=== PATIENT | female | born 1980 | race Caucasian/White ===

== ENCOUNTER 2017-10-19 14:36 | Observation (INO) ==
[2017-10-19] MEDS ORDERED: Ketorolac Inj 30 MG/ML (IVP) Vial IV.PUSH ONE (14:56)
--- NOTE | 2017-10-19 15:04 | ED ---
HPI General Chief Complaint: Anxiety Stated Complaint: Shaking/SOB Source: patient Mode of arrival: ambulatory Limitations: no limitations History of Present Illness HPI narrative: 37-year-old female complains of feeling anxious, chills, menstruation cramps. Patient states that her menstruation period started this morning. Patient has history anxiety in the past. Patient is on citalopram daily. Patient denies any headache. Patient denies any neck pain. Patient denies any chest pain or shortness of breath. Patient denies abdominal pain. Patient denies any dysuria . Patient denies any fever. Patient denies any back pain. Patient denies any alcohol or illicit drug abuse. Patient states that she had urinary frequency for the past 2 days. Patient has history of tachycardia recently. Patient try to avoid caffeine and resume back to drinking caffeine again today. complaint: anxiety Onset (ago): hour(s) Severity: moderate Quality: constant Place: home History of similar episodes: Yes Provoking factors: none known Relieving factors: nothing Exacerbating factors: nothing Related Data Home Medications Medication Instructions Recorded Confirmed citalopram 20 mg PO DAILY 10/19/17 10/19/17 Allergies Allergy/AdvReac Type Severity Reaction Status Date / Time No Known Allergies Allergy Unverified 10/19/17 14:44 Review of Systems ROS: all other systems reviewed are negative PMFSH Medical History Medical History History of anxiety (Acute) Surgical History Surgical History No history of previous surgery (Acute) Social History Social History Substance History: No History of Abuse Second Hand Smoke Exposure: No Smoking Status: Former smoker Tobacco Type: Cigarettes How Often Do You Have a Drink Containing Alcohol: 4 or more times a week Recent Travel in [facility] within the Last 8 Weeks: No Recent Out of Country Travel within the Last 8 Weeks: No Immunization History Tetanus Immunization: >5 Years Hx Influenza Vaccine This Season: No Exam Narrative Exam Narrative: GENERAL: Well-nourished, well-developed patient. SKIN: Focused skin assessment warm/dry. HEAD: Normocephalic. EYES: No scleral icterus. No injection or drainage. NECK: Supple, trachea midline. No JVD or lymphadenopathy. CARDIOVASCULAR: Mild tachycardia rate and rhythm without murmurs, gallops, or rubs. RESPIRATORY: Breath sounds equal bilaterally. No accessory muscle use. GASTROINTESTINAL: Abdomen soft, non-tender, nondistended. MUSCULOSKELETAL: No cyanosis, or edema. BACK: Nontender without obvious deformity. No CVA tenderness. Neurologic exam normal. Course Initial Documented Vital Signs Temperature 98.2 F 10/19/17 14:45 Pulse Rate 123 H 10/19/17 14:45 Respiratory Rate 24 10/19/17 14:45 Blood Pressure 158/112 H 10/19/17 14:45 Pulse Oximetry 100 10/19/17 14:45 Last Documented Vital Signs Temperature 98.2 F 10/19/17 14:45 Pulse Rate 133 H 10/19/17 16:51 Respiratory Rate 20 10/19/17 16:51 Blood Pressure 122/78 10/19/17 16:51 Pulse Oximetry 98 10/19/17 16:51 Medical Decision Making MDM Narrative Medical decision making narrative: 37-year-old female complains chills, anxiety. History anxiety. Normal saline solution 1 25 cc an hour. Ativan 1 mg IV. Patient remains tachycardic with heart rate in the 140s range. Carotid massage did not slow down the heart rate. Metoprolol 2.5 mg IV slow down heart rate in the 110s range. Patient has UTI. Patient complains of urinary frequency and chills today. Patient does not have any evidence of septicemia. Rocephin 1 g IV given. Patient will be admitted for IV antibiotics and monitor. Avoid caffeine products. Normal saline solution 1 L IV bolus. Medical Screen Exam Complete: Yes Emergency Medical Condition: Yes Differential Diagnosis Differential Diagnosis: Differential diagnosis including anxiety panic attack, electrolyte imbalance, dehydration, electrolyte imbalance, viral syndrome. Lab Data Lab results reviewed: Yes I reviewed the patient's lab results. Result diagrams: 10/19/17 15:10 10/19/17 15:10 POC Results POC Urine Results Negative Lab Results 10/19/17 10/19/17 10/19/17 Range/Units 15:10 15:10 15:10 CBC w Diff Auto diff final WBC 11.3 H (4.0-11.0) th/mm3 RBC 4.26 (4.00-5.30) mil/mm3 Hgb 13.1 (11.6-15.3) gm/dL Hct 38.5 (35.0-46.0) % MCV 90.4 (80.0-100.0) fL MCH 30.9 (27.0-34.0) pg MCHC 34.2 (32.0-36.0) % RDW 13.4 (11.6-17.2) % Plt Count 142 L (150-450) th/mm3 MPV 9.9 (7.0-11.0) fL Neut % (Auto) 84.1 H (16.0-70.0) % Lymph % (Auto) 10.4 (9.0-44.0) % [place] % (Auto) 2.9 (0.0-8.0) % Eos % (Auto) 1.4 (0.0-4.0) % Baso % (Auto) 1.2 (0.0-2.0) % Neut # (Auto) 9.4 H (1.8-7.7) th/mm3 Lymph # (Auto) 1.2 (1.0-4.8) th/mm3 [place] # (Auto) 0.3 (0.0-0.9) th/mm3 Eos # (Auto) 0.2 (0.0-0.4) th/mm3 Baso # (Auto) 0.1 (0.0-0.2) th/mm3 WBC Differential . Differential Comment . PT (9.8-11.6) sec INR Ratio APTT (24.3-30.1) sec D-Dimer Quant (PE/DVT) (0.00-0.50) mg/L FEU Sodium 134 L (136-145) meq/L Potassium 3.9 (3.5-5.1) meq/L Chloride 99 (98-107) meq/L Carbon Dioxide 27.5 (21.0-32.0) meq/L Anion Gap 8 (5-15) meq/L BUN 14 (7-18) mg/dL Creatinine 0.84 (0.50-1.00) mg/dL Estimated GFR 76 L (>89) mL/min Random Glucose 118 H (74-106) mg/dL Calcium 8.5 (8.5-10.1) mg/dL Total Creatine Kinase 57 (26-192) U/L Troponin I Less than 0.02 L (0.02-0.05) ng/mL TSH 5.010 H (0.358-3.740) uIU/mL Ur Collection Type Urine Color (Yellw/Straw) Urine Clarity (Clear) Urine pH (5.0-8.5) Ur Specific [place] (1.002-1.035) Urine Protein (Neg-Trace) mg/dL Urine Glucose (UA) (Negative) mg/dL Urine Ketones (Negative) mg/dL Urine Occult Blood (Negative) Urine Nitrate (Negative) Urine Bilirubin (Negative) Urine Urobilinogen (Less than 2) mg/dL Ur Leukocyte Esterase (Negative) Urine RBC (0-3) /hpf Urine WBC (0-5) /hpf Ur Squamous Epith Cells (0-5) /hpf Urine Bacteria (None) /hpf Micro UA Comment Ur Microscopic Review Urine Culture Comments Urine Opiates Screen (Neg) Ur Barbiturates Screen (Neg) Ur Amphetamines Screen (Neg) U Benzodiazepines Scrn (Neg) Urine Cocaine Screen (Neg) U Cannabinoids Screen (Neg) 10/19/17 10/19/17 10/19/17 Range/Units 15:50 16:45 16:45 CBC w Diff WBC (4.0-11.0) th/mm3 RBC (4.00-5.30) mil/mm3 Hgb (11.6-15.3) gm/dL Hct (35.0-46.0) % MCV (80.0-100.0) fL MCH (27.0-34.0) pg MCHC (32.0-36.0) % RDW (11.6-17.2) % Plt Count (150-450) th/mm3 MPV (7.0-11.0) fL Neut % (Auto) (16.0-70.0) % Lymph % (Auto) (9.0-44.0) % [place] % (Auto) (0.0-8.0) % Eos % (Auto) (0.0-4.0) % Baso % (Auto) (0.0-2.0) % Neut # (Auto) (1.8-7.7) th/mm3 Lymph # (Auto) (1.0-4.8) th/mm3 [place] # (Auto) (0.0-0.9) th/mm3 Eos # (Auto) (0.0-0.4) th/mm3 Baso # (Auto) (0.0-0.2) th/mm3 WBC Differential Differential Comment PT 9.9 (9.8-11.6) sec INR 0.9 Ratio APTT 24.3 (24.3-30.1) sec D-Dimer Quant (PE/DVT) 0.67 H (0.00-0.50) mg/L FEU Sodium (136-145) meq/L Potassium (3.5-5.1) meq/L Chloride (98-107) meq/L Carbon Dioxide (21.0-32.0) meq/L Anion Gap (5-15) meq/L BUN (7-18) mg/dL Creatinine (0.50-1.00) mg/dL Estimated GFR (>89) mL/min Random Glucose (74-106) mg/dL Calcium (8.5-10.1) mg/dL Total Creatine Kinase (26-192) U/L Troponin I (0.02-0.05) ng/mL TSH (0.358-3.740) uIU/mL Ur Collection Type Clean catch Urine Color Yellow (Yellw/Straw) Urine Clarity Clear (Clear) Urine pH 5.5 (5.0-8.5) Ur Specific [place] 1.015 (1.002-1.035) Urine Protein 30 H (Neg-Trace) mg/dL Urine Glucose (UA) Negative (Negative) mg/dL Urine Ketones Negative (Negative) mg/dL Urine Occult Blood Moderate H (Negative) Urine Nitrate Positive H (Negative) Urine Bilirubin Negative (Negative) Urine Urobilinogen 0.2 (Less than 2) mg/dL Ur Leukocyte Esterase Moderate H (Negative) Urine RBC 4-15 H (0-3) /hpf Urine WBC 21-50 H (0-5) /hpf Ur Squamous Epith Cells 0-5 (0-5) /hpf Urine Bacteria Few H (None) /hpf Micro UA Comment Culture indicated Ur Microscopic Review Microscopic reviewed Urine Culture Comments Culture indicated Urine Opiates Screen Neg (Neg) Ur Barbiturates Screen Neg (Neg) Ur Amphetamines Screen Neg (Neg) U Benzodiazepines Scrn Neg (Neg) Urine Cocaine Screen Neg (Neg) U Cannabinoids Screen Neg (Neg) Imaging Data Attestation: I personally reviewed and interpreted this imaging study as follows : Radiologist's impression: Chest X-Ray 10/19/17 15:53 CONCLUSION: No acute cardiopulmonary disease. Chest CTA 10/19/17 16:03 CONCLUSION: Unremarkable study except for fatty liver. ECG Data EKG Prior to Arrival: No Attestation: I personally reviewed and interpreted this ECG as follows: Interpretation: EKG shows sinus tachycardia rate 144. Nonspecific ST-T wave change. Discharge Plan Discharge Disposition Patient Disposition: 30 Still Patient Discharge Details Diagnosis: UTI (urinary tract infection), Tachycardia Physicians Team ED Provider: Leonel Voss Primary Care Provider: Chaparro Gonzalez Rxs /Orders / Referrals /Forms Prescriptions: No Action citalopram 20 mg Tablet 20 mg PO DAILY RF: 0 Status ED Status: In Room
[2017-10-19] MEDS: Sod Chloride 0.9% Inj 1,000 ML IV.CONT SCH (15:29)
[2017-10-19 15:30] LABS: Potassium 3.9 meq/L (3.5-5.1)
[2017-10-19 15:33] LABS: Calcium 8.5 mg/dL (8.5-10.1); Carbon Dioxide 27.5 meq/L (21.0-32.0)
[2017-10-19 15:38] LABS: Baso # (Auto) 0.1 th/mm3 (0.0-0.2); Baso % (Auto) 1.2 % (0.0-2.0); Eos # (Auto) 0.2 th/mm3 (0.0-0.4); Eos % (Auto) 1.4 % (0.0-4.0); Hematocrit 38.5 % (35.0-46.0); Hemoglobin 13.1 gm/dL (11.6-15.3); Lymph # (Auto) 1.2 th/mm3 (1.0-4.8); Lymph % (Auto) 10.4 % (9.0-44.0); Mean Corpuscular HGB Conc 34.2 % (32.0-36.0); Mean Corpuscular Hemoglobin 30.9 pg (27.0-34.0); Mean Corpuscular Volume 90.4 fL (80.0-100.0); Mean Platelet Volume 9.9 fL (7.0-11.0); Mono # (Auto) 0.3 th/mm3 (0.0-0.9); Mono % (Auto) 2.9 % (0.0-8.0); Neut # (Auto) 9.4 th/mm3 (1.8-7.7); Neut % (Auto) 84.1 % (16.0-70.0); Red Blood Count 4.26 mil/mm3 (4.00-5.30); Red Cell Distribution Width 13.4 % (11.6-17.2); White Blood Count 11.3 th/mm3 (4.0-11.0)
[2017-10-19 15:39] LABS: Platelet Count 142 th/mm3 (150-450)
[2017-10-19 16:25] LABS: Creatine Kinase 57 U/L (26-192)
--- NOTE | 2017-10-19 16:33 | XR ---
EXAM DATE: 10/19/2017 4:24 PM EDT AGE/SEX: 37 years / Female INDICATIONS: Chest pain, short of breath, rapid heart rate, nausea, today CLINICAL DATA: This is the patient's initial encounter. Patient reports that signs and symptoms have been present for 1 day and indicates a pain score of 8/10. MEDICAL/SURGICAL HISTORY: None. None. COMPARISON: No prior exams available for comparison. FINDINGS: The lungs are clear without infiltrate, nodule, or mass. There is no appreciable pleural effusion for technique. Heart and mediastinum are unremarkable. CONCLUSION: No acute cardiopulmonary disease. Electronically signed by: Thelma Richard MD 10/19/2017 4:31 PM EDT
[2017-10-19] MEDS ORDERED: Metoprolol Inj 5 MG/5 ML Vial IV.PUSH ONE (16:38)
[2017-10-19 16:43] LABS: Activated Partial Thrombo Time 24.3 sec (24.3-30.1); INR 0.9 Ratio; Prothrombin Time 9.9 sec (9.8-11.6)
[2017-10-19 16:44] LABS: D-Dimer 0.67 mg/L FEU (0.00-0.50)
--- NOTE | 2017-10-19 16:55 | CT ---
EXAM DATE: 10/19/2017 4:48 PM EDT AGE/SEX: 37 years / Female INDICATIONS: Short of breath. CLINICAL DATA: This is the patient's initial encounter. Patient reports that signs and symptoms have been present for 1 day and indicates a pain score of 0/10. MEDICAL/SURGICAL HISTORY: None. None. RADIATION DOSE: 21.32 CTDI (mGy) ; Patient body habitus COMPARISON: No prior exams available for comparison. TECHNIQUE: Volumetric scanning was performed using a multi-row detector CT scanner during bolus infu gurwinder of 65 ml Omnipaque 350 (iohexol) nonionic water-soluble contrast as a single exam dose. The lisandro a was post processed with a variety of visualization algorithms including full volume maximum intensi ty projection and sliding thin slab reformation. Using automated exposure control and adjustment of the mA and/or kV according to patient size, radiation dose was kept as low as reasonably achievable t o obtain optimal diagnostic quality images. DICOM format image data is available electronically for review and comparison. FINDINGS: The lungs are clear without infiltrate, nodule, or mass. There is no pleural effusion. No appreciab le pathological adenopathy is seen within the mediastinum. There is no evidence of PE for technique. Right-sided aortic arch is seen. The liver is diffusely fatty without focal lesions for technique. CONCLUSION: Unremarkable study except for fatty liver. Electronically signed by: Thelma Richard MD 10/19/2017 4:54 PM EDT
[2017-10-19 17:07] LABS: Bilirubin,Urine Negative (Negative); Clarity,Urine Clear (Clear); Color,Urine Yellow (Yellw/Straw); Glucose,Urine (UA) Negative (Negative); Leukocyte Esterase,Urine Moderate (Negative); Nitrite,Urine Positive (Negative); PH,Urine 5.5 (5.0-8.5); Specific Gravity,Urine 1.015 (1.002-1.035); Urobilinogen,Urine 0.2 mg/dL (Less than 2)
[2017-10-19 17:16] LABS: Amphetamine Screen,Urine Neg (Neg); Barbiturate Screen,Urine Neg (Neg); Cannabinoid Screen,Urine Neg (Neg); Cocaine Screen,Urine Neg (Neg)
[2017-10-19 17:21] LABS: Bacteria,Urine Few /hpf; Squamous Epithelial Cell,Urine 0-5 /hpf (0-5); WBC,Urine 21-50 /hpf (0-5)
[2017-10-19 17:24] LABS: Opiate Screen,Urine Neg (Neg)
[2017-10-19] MEDS ORDERED: Sod Chloride 0.9% Inj 1,000 ML IV.SIG SCH (17:45)
[2017-10-19] MEDS ORDERED: Temazepam 15 MG Capsule PO PRN (17:53)
[2017-10-19] MEDS ORDERED: Acetaminophen 325 MG Tablet PO PRN (17:53)
[2017-10-19] MEDS ORDERED: Bisacodyl 10 MG Supp RECTAL PRN (17:53)
[2017-10-19] MEDS ORDERED: Sod Chloride 0.9% Inj 1,000 ML IV.SIG ONE (17:56)
[2017-10-19] MEDS ORDERED: Metoprolol Inj 5 MG/5 ML Vial IV.PUSH PRN (18:01)
[2017-10-19] MEDS ORDERED: ALPRAZolam 0.25 MG Tablet PO PRN (18:02)
--- NOTE | 2017-10-19 19:41 | CT ---
EXAM DATE: 10/19/2017 7:33 PM EDT AGE/SEX: 37 years / Female INDICATIONS: Shaking. Shortness of breath. CLINICAL DATA: This is the patient's initial encounter. Patient reports that signs and symptoms have been present for 1 day and indicates a pain score of 0/10. MEDICAL/SURGICAL HISTORY: . Anxiety. None. RADIATION DOSE: 23.33 CTDI (mGy) COMPARISON: No prior exams available for comparison. TECHNIQUE: Multiple contiguous axial images were obtained through the abdomen. Images were obtained using multiple row detector helical technique. Using automated exposure control and adjustment of the mA and/or kV according to patient size, radiation dose was kept as low as reasonably achievable to o btain optimal diagnostic quality images. DICOM format image data is available electronically for rev iew and comparison. FINDINGS: Abdomen CT: The pancreas, kidneys, adrenals are unremarkable. There is no evidence for any appreciable pathologic al adenopathy, free fluid, or bowel obstruction. Spleen measures 14.5 cm in craniocaudal dimensions without focal lesions. The liver is diffusely fatty without focal lesions for technique. The liver is also enlarged measures 23 cm in clinical dimension and extends all the way across the abdomen undern eath the left hemidiaphragm. Pelvic CT: There is no evidence for abscess formation, or any significant adenopathy within the pelvis. Approxi mate 1.9 cm mass is present adjacent to the dome of the uterus probably an exophytic fibroid and yon tional uterine fibroids may be present. The appendix appears intact for technique without signs of ap pendicitis. CONCLUSION: Hepatosplenomegaly and fatty liver. Uterine fibroid. Electronically signed by: Thelma Richard MD 10/19/2017 7:40 PM EDT
[2017-10-19] MEDS: Senna/Docusate Sodium 8.6/50 MG Tablet PO SCH (21:06)
[2017-10-20 05:56] LABS: Baso % (Auto) 0.4 % (0.0-2.0); Eos # (Auto) 0.1 th/mm3 (0.0-0.4); Eos % (Auto) 1.1 % (0.0-4.0); Hematocrit 34.5 % (35.0-46.0); Hemoglobin 11.3 gm/dL (11.6-15.3); Lymph # (Auto) 1.4 th/mm3 (1.0-4.8); Lymph % (Auto) 19.7 % (9.0-44.0); Mean Corpuscular HGB Conc 32.9 % (32.0-36.0); Mean Corpuscular Hemoglobin 30.6 pg (27.0-34.0); Mean Corpuscular Volume 93.1 fL (80.0-100.0); Mean Platelet Volume 10.8 fL (7.0-11.0); Mono # (Auto) 0.6 th/mm3 (0.0-0.9); Mono % (Auto) 7.6 % (0.0-8.0); Neut # (Auto) 5.2 th/mm3 (1.8-7.7); Neut % (Auto) 71.2 % (16.0-70.0); Platelet Count 121 th/mm3 (150-450); Red Cell Distribution Width 12.7 % (11.6-17.2); White Blood Count 7.3 th/mm3 (4.0-11.0)
[2017-10-20 06:00] LABS: Chloride 106 meq/L (98-107); Potassium 3.7 meq/L (3.5-5.1); Sodium 140 meq/L (136-145)
[2017-10-20 06:07] LABS: Anion Gap 6 meq/L (5-15); Blood Urea Nitrogen 10 mg/dL (7-18); Calcium 7.4 mg/dL (8.5-10.1); Carbon Dioxide 28.3 meq/L (21.0-32.0); Glomerular Filtration Rate Greater Than 89 mL/min (>89); Glucose,Random 127 mg/dL (74-106)
[2017-10-20 06:23] LABS: Total Protein 6.5 g/dL (6.4-8.2)
[2017-10-20] MEDS: Senna/Docusate Sodium 8.6/50 MG Tablet PO SCH (08:03)
[2017-10-20] MEDS: Sod Chloride 0.9% Inj 1,000 ML IV.CONT SCH (08:04)
[2017-10-20 08:09] VITALS: O2SAT 97
[2017-10-20 08:13] VITALS: BP 135/89; PULSE 86; RESP 15; TEMP 98.6
--- NOTE | 2017-10-20 08:43 | P.HP ---
History of Present Illness Primary Care Physician: Chaparro Gonzalez Chief Complaint: Chills, lightheadedness and dizziness History of Present Illness: 37-year-old female with known history of anxiety who presented to the hospital because of chills, lightheadedness, dizziness. Patient states that she had onset of her symptoms for only 1 day. Yesterday she started developing chills. She did not take her temperature to see if she had a fever. She indicates that every time she was standing up she would get lightheaded. She did not feel well so she came to emergency department for evaluation. Upon further questioning the patient has had urinary frequency. She states that this is been going on for years, she has had 2 urinary tract infections in her whole life. Upon asking the patient proper hygiene she states that she usually wipes from the back to front. Patient was notified that she needs to wipe from front to back. Patient came to the emergency department for evaluation upon presentation she had significant tachycardia in the 140s. Patient was given metoprolol with improvement down to 110s. Her heart rate did come back up again and carotid sinus rub was performed without any significant response. Patient was started on IV fluid bolus, started on IV antibiotics. Workup did indicate urinary tract infection. ER physician recommended that the patient be admitted the hospital for further evaluation and management. Patient denied any fever, abdominal pain, chest pain, shortness of breath, dyspnea. She did have some nausea, lightheadedness, urinary frequency, dysuria. - Diagnosis (1) UTI (urinary tract infection) (2) Tachycardia Inpatient Certification: I certify that the inpatient services were ordered in accordance with Medicare regulations governing the order. This includes certification that hospital inpatient services are reasonable and necessary and in the case of services not specified as inpatient-only under 42 CFR 419.22(n), that they are appropriately provided as inpatient services in accordance to with the 2-midnight benchmark under 43 CFR 412.3(e) Review of Systems All other systems reviewed negative except as stated in HPI Constitutional: Reports chills Genitourinary: Reports painful urination Neurologic: Reports dizziness PMFSH - History History Provided By: Patient - Medical History Medical History: Medical History (Last Reviewed 10/20/17 @ 08:40 by XOCHITL Richards) History of anxiety - Surgical History Surgical History: Surgical History (Last Reviewed 10/20/17 @ 08:40 by XOCHITL Richards) No history of previous surgery - Family History Family History: Family History (Last Updated 10/20/17 @ 08:27 by XOCHITL Richards) Grandparent History of breast cancer History of lung cancer - Tobacco History Second Hand Smoke Exposure: No Tobacco Use In Past 30 Days: No Smoking Status: Former smoker Tobacco Type: Cigarettes - Alcohol History How Often Do You Have a Drink Containing Alcohol: 4 or more times a week - Substance Use History Substance History: No History of Abuse - Substance Use Type Alcohol Status: Active Route Used: By Mouth Frequency: daily 2 glasses of wine Last Used: 10-18-2017 Reason for Use: Calm Down - Travel History Recent Travel in the [place] Within the Last 8 Weeks: No Recent Travel Out of the Country Within the Last 8 Weeks: No - Immunization History Tetanus Immunization: Unsure Hx Influenza Vaccine This Season: No Medications and Allergies Active Medications: Active Medications Acetaminophen (Tylenol) 650 mg PO Q4H PRN PRN Reason: Temp > 100.4 Al Hydroxide/Mg Hydroxide (Milk Of Magnesia Liq) 30 ml PO Q12H PRN PRN Reason: Mild Constipation Alprazolam (Xanax) 0.125 mg PO Q6H PRN PRN Reason: ANXIETY Bisacodyl (Dulcolax Supp) 10 mg RECTAL DAILY PRN PRN Reason: SEVERE CONSITIPATION Sodium Chloride (Ns Inj) 1,000 mls @ 125 mls/hr IV.CONT .Q8H JANES Last Admin: 10/20/17 08:04 Dose: Not Given Sodium Chloride (Ns Inj) 1,000 mls @ 0 mls/hr IV.SIG BOLUS JANES Last Infusion: 10/19/17 22:33 Dose: 999 mls/hr Ceftriaxone Sodium 1,000 mg/ (Sodium Chloride) 100 mls @ 200 mls/hr IV.SIG Q24H JANES Lactulose (Lactulose Liq) 30 ml PO DAILY PRN PRN Reason: SEVERE CONSITIPATION Metoprolol Tartrate (Lopressor Inj) 2.5 mg IV.PUSH Q6H PRN PRN Reason: heart rate greater than 140 Ondansetron HCl (Zofran Inj) 4 mg IV.PUSH Q6H PRN PRN Reason: NAUSEA OR VOMITING Last Admin: 10/19/17 21:06 Dose: 4 mg Senna/Docusate Sodium (Shayla-Colace) 1 tab PO BID [facility] Last Admin: 10/20/17 08:03 Dose: Not Given Sennosides (Senokot) 17.2 mg PO Q12H PRN PRN Reason: Moderate Constipation Sodium Chloride (Ns Flush) 2 ml IV.FLUSH PRN PRN PRN Reason: FLUSH AFTER USING IV ACCESS Sodium Chloride (Ns Flush) 2 ml IV.FLUSH BID [facility] Last Admin: 10/20/17 08:03 Dose: Not Given Temazepam (Restoril) 15 mg PO HS PRN PRN Reason: INSOMNIA Allergies Allergy/AdvReac Type Severity Reaction Status Date / Time No Known Allergies Allergy Unverified 10/19/17 14:44 Home Medications Medication Instructions Recorded Confirmed Type citalopram 20 mg PO DAILY 10/19/17 10/19/17 History Exam Vital signs: Vital Signs 10/19/17 14:45 10/19/17 15:36 10/19/17 16:51 Temperature 98.2 F Pulse Rate 123 H 138 H 133 H Respiratory Rate 24 20 20 Blood Pressure 158/112 H 131/76 122/78 Pulse Oximetry 100 96 98 10/19/17 18:25 10/19/17 19:30 10/19/17 19:52 Temperature 99.6 F 100.3 F H Pulse Rate 108 H 115 H 122 H Respiratory Rate 20 20 22 Blood Pressure 126/67 114/75 141/83 H Pulse Oximetry 98 97 10/19/17 20:00 10/20/17 00:00 10/20/17 04:00 Temperature 98.9 F 97.8 F Pulse Rate 107 H 92 H 93 H Respiratory Rate 18 20 20 Blood Pressure 116/64 104/62 99/65 L Pulse Oximetry 100 98 98 10/20/17 06:57 10/20/17 08:00 Temperature 98.6 F Pulse Rate 92 H 86 Respiratory Rate 19 15 Blood Pressure 135/89 Pulse Oximetry 97 Intake & Output 10/19/17 10/20/17 10/20/17 18:59 06:59 18:59 Intake Total 100 / 100 0 / 0 1000 / 1000 Balance 100 / 100 0 / 0 1000 / 1000 Weight 99 kg 99.6 kg Intake: IV 100 / 100 0 / 0 1000 / 1000 NS Inj 1,000 ML @ 125 mls/hr IV 1000 / 1000 .CONT .Q8H JANES Rx#:[id number] NS Inj 1,000 ML @ Wide Open IV. 0 / 0 SIG BOLUS JANES Rx#:[id number] Rocephin Inj 1,000 MG In NS Inj 100 / 100 100 ML @ 200 mls/hr IV.SIG ONCE ONE Rx#:[id number] Other: # Voids 5 Date of Last Bowel Movement 10/19/17 Weight On Admission 99 kg Narrative: GENERAL: Well-developed, well-nourished, in no acute distress. alert and orientated HEENT: Head is normocephalic without any lesions or masses noted. Facial features are symmetric. Eyes: Pupils equal round reactive to light. Extraocular muscles are intact. Conjunctivae were clear. Oropharyngeal: Pharynx without any erythema edema. Tongue is midline without deviation. Buccal mucosa is moist without any masses or lesions NECK: Supple without any masses. Trachea midline no deviation. No JVD, no bruits are appreciated CARDIAC: Regular rhythm, regular rate. S1/S2 are heard. No murmurs gallops or rubs. LUNGS: Clear to auscultation bilaterally. No wheeze, rhonchi or rales. No use of accessory muscles on inspiration or expiration. ABDOMEN: Soft, nontender. Nondistended. Bowel sounds heard in all 4 quadrants. No organomegaly or masses. Negative rebound, negative guarding EXTREMITIES: No edema, pulses are equal bilaterally. No cyanosis or clubbing NEUROLOGY: Mood and affect appear appropriate. Cranial nerves II through XII grossly intact. Muscle strength 5/5 in upper and lower extremities bilaterally. Deep tendon reflexes are 2+ in upper and lower extremities bilaterally. Results - Labs CBC & Chem 7: 10/20/17 05:30 10/20/17 05:30 Labs: Laboratory Results - last 24 hr 10/19/17 10/19/17 10/19/17 15:10 15:10 15:10 CBC w Diff Auto diff final WBC 11.3 H RBC 4.26 Hgb 13.1 Hct 38.5 MCV 90.4 MCH 30.9 MCHC 34.2 RDW 13.4 Plt Count 142 L MPV 9.9 Neut % (Auto) 84.1 H Lymph % (Auto) 10.4 Valley % (Auto) 2.9 Eos % (Auto) 1.4 Baso % (Auto) 1.2 Neut # (Auto) 9.4 H Lymph # (Auto) 1.2 Valley # (Auto) 0.3 Eos # (Auto) 0.2 Baso # (Auto) 0.1 WBC Differential . Differential Comment . PT INR APTT D-Dimer Quant (PE/DVT) Sodium 134 L Potassium 3.9 Chloride 99 Carbon Dioxide 27.5 Anion Gap 8 BUN 14 Creatinine 0.84 Estimated GFR 76 L Random Glucose 118 H Calcium 8.5 Prot Corrected Calcium Total Creatine Kinase 57 Troponin I Less than 0.02 L Total Protein TSH 5.010 H Ur Collection Type Urine Color Urine Clarity Urine pH Ur Specific [place] Urine Protein Urine Glucose (UA) Urine Ketones Urine Occult Blood Urine Nitrate Urine Bilirubin Urine Urobilinogen Ur Leukocyte Esterase Urine RBC Urine WBC Ur Squamous Epith Cells Urine Bacteria Micro UA Comment Ur Microscopic Review Urine Culture Comments Urine Opiates Screen Ur Barbiturates Screen Ur Amphetamines Screen U Benzodiazepines Scrn Urine Cocaine Screen U Cannabinoids Screen 10/19/17 10/19/17 10/19/17 15:50 16:45 16:45 CBC w Diff WBC RBC Hgb Hct MCV MCH MCHC RDW Plt Count MPV Neut % (Auto) Lymph % (Auto) Valley % (Auto) Eos % (Auto) Baso % (Auto) Neut # (Auto) Lymph # (Auto) Valley # (Auto) Eos # (Auto) Baso # (Auto) WBC Differential Differential Comment PT 9.9 INR 0.9 APTT 24.3 D-Dimer Quant (PE/DVT) 0.67 H Sodium Potassium Chloride Carbon Dioxide Anion Gap BUN Creatinine Estimated GFR Random Glucose Calcium Prot Corrected Calcium Total Creatine Kinase Troponin I Total Protein TSH Ur Collection Type Clean catch Urine Color Yellow Urine Clarity Clear Urine pH 5.5 Ur Specific [place] 1.015 Urine Protein 30 H Urine Glucose (UA) Negative Urine Ketones Negative Urine Occult Blood Moderate H Urine Nitrate Positive H Urine Bilirubin Negative Urine Urobilinogen 0.2 Ur Leukocyte Esterase Moderate H Urine RBC 4-15 H Urine WBC 21-50 H Ur Squamous Epith Cells 0-5 Urine Bacteria Few H Micro UA Comment Culture indicated Ur Microscopic Review Microscopic reviewed Urine Culture Comments Culture indicated Urine Opiates Screen Neg Ur Barbiturates Screen Neg Ur Amphetamines Screen Neg U Benzodiazepines Scrn Neg Urine Cocaine Screen Neg U Cannabinoids Screen Neg 10/20/17 10/20/17 05:30 05:30 CBC w Diff Auto diff final WBC 7.3 RBC 3.70 L Hgb 11.3 L Hct 34.5 L MCV 93.1 MCH 30.6 MCHC 32.9 RDW 12.7 Plt Count 121 L MPV 10.8 Neut % (Auto) 71.2 H Lymph % (Auto) 19.7 Valley % (Auto) 7.6 Eos % (Auto) 1.1 Baso % (Auto) 0.4 Neut # (Auto) 5.2 Lymph # (Auto) 1.4 Valley # (Auto) 0.6 Eos # (Auto) 0.1 Baso # (Auto) 0.0 WBC Differential . Differential Comment . PT INR APTT D-Dimer Quant (PE/DVT) Sodium 140 Potassium 3.7 Chloride 106 Carbon Dioxide 28.3 Anion Gap 6 BUN 10 Creatinine 0.71 Estimated GFR Greater than 89 Random Glucose 127 H Calcium 7.4 L* D Prot Corrected Calcium 7.7 L Total Creatine Kinase Troponin I Total Protein 6.5 TSH Ur Collection Type Urine Color Urine Clarity Urine pH Ur Specific [place] Urine Protein Urine Glucose (UA) Urine Ketones Urine Occult Blood Urine Nitrate Urine Bilirubin Urine Urobilinogen Ur Leukocyte Esterase Urine RBC Urine WBC Ur Squamous Epith Cells Urine Bacteria Micro UA Comment Ur Microscopic Review Urine Culture Comments Urine Opiates Screen Ur Barbiturates Screen Ur Amphetamines Screen U Benzodiazepines Scrn Urine Cocaine Screen U Cannabinoids Screen - Imaging Impressions Abdomen/Pelvis CT 10/19/17 00:00 CONCLUSION: Hepatosplenomegaly and fatty liver. Uterine fibroid. Chest X-Ray 10/19/17 15:53 CONCLUSION: No acute cardiopulmonary disease. Chest CTA 10/19/17 16:03 CONCLUSION: Unremarkable study except for fatty liver. Caprini VTE Risk Assessment Caprini VTE Risk Assessment: No/Low Risk (score <= 1) Caprini Risk Assessment Model: Point Value = 1 Point Value = 2 Point Value = 3 Point Value = 5 Age 41-60 Minor surgery BMI > 25 kg/m2 Swollen legs Varicose veins or History of unexplained or recurrent spontaneous Oral contraceptives or hormone replacement Sepsis (< 1 month) Serious lung disease, including pneumonia (< 1 month) Abnormal pulmonary function Acute myocardial infarction Congestive heart failure (< 1 month) History of inflammatory bowel disease Medical patient at bed rest Age 61-74 Arthroscopic surgery Major open surgery (> 45 min) Laparoscopic surgery (> 45 min) Malignancy Confined to bed (> 72 hours) Immobilizing plaster cast Central venous access Age >= 75 History of VTE Family history of VTE Factor V Leiden Prothrombin [id number] Lupus anticoagulant Anticardiolipin antibodies Elevated serum homocysteine Heparin-induced thrombocytopenia Other congenital or acquired thrombophilia Stroke (< 1 month) Elective arthroplasty Hip, pelvis, or leg fracture Acute spinal cord injury (< 1 month) Prophylaxis Regimen: Total Risk Factor Score Risk Level Prophylaxis Regimen 0-1 Low Early ambulation 2 Moderate Order ONE of the following: *Sequential Compression Device (SCD) *Heparin 5000 units SQ BID 3-4 Higher Order ONE of the following medications: *Heparin 5000 units SQ TID *Enoxaparin/Lovenox 40 mg SQ daily (WT < 150 kg, CrCl > 30 mL/min) *Enoxaparin/Lovenox 30 mg SQ daily (WT < 150 kg, CrCl > 10-29 mL/min) *Enoxaparin/Lovenox 30 mg SQ BID (WT < 150 kg, CrCl > 30 mL/min) AND/OR *Sequential Compression Device (SCD) 5 or more Highest Order ONE of the following medications: *Heparin 5000 units SQ TID (Preferred with Epidurals) *Enoxaparin/Lovenox 40 mg SQ daily (WT < 150 kg, CrCl > 30 mL/min) *Enoxaparin/Lovenox 30 mg SQ daily (WT < 150 kg, CrCl > 10-29 mL/min) *Enoxaparin/Lovenox 30 mg SQ BID (WT < 150 kg, CrCl > 30 mL/min) AND *Sequential Compression Device (SCD) Assessment and Plan - Assessment (1) UTI (urinary tract infection) Code(s): N39.0 - Urinary tract infection, site not specified Status: Acute (2) Tachycardia Code(s): R00.0 - Tachycardia, unspecified Status: Acute - Plan Urinary tract infection with possible early sepsis -Patient presented with tachycardia, chills, urinary frequency and dysuria -Patient started on Rocephin IV daily -Continue to follow urine culture Sinus tachycardia (heart rate 107-138), resolved -Likely secondary to mild dehydration and urinary tract infection -Status post metoprolol in the emergency department with minimal benefit -Status post 2 L normal saline bolus with resolution of tachycardia Anxiety -Home medication continued DVT prevention -Sequential compression devices Discharge Planning: Discharge home in stable condition Activity: Ad davi. Diet: Regular diet Medication per medication reconciliation Follow-up with primary medical doctor in 1 week (1) UTI (urinary tract infection) Qualifiers: Urinary tract infection type: acute cystitis Hematuria presence: without hematuria Qualified Code(s): N30.00 - Acute cystitis without hematuria
[2017-10-20] MEDS ORDERED: Ciprofloxacin 500 MG Tablet PO ONE (10:15)
--- NOTE | 2017-10-20 13:35 | ECG ---
Date Performed: 10/19/2017 Time Performed: 16:09:28 PTAGE: 37 years EKG: SINUS TACHYCARDIA, POSSIBLE ATRIAL FLUTTER INCOMPLETE RIGHT BUNDLE BRANCH BLOCK NONSPECIFIC T-WAVE ABNORMALITY ABNORMAL RHYTHM ECG Compared to PREVIOUS TRACING , the marked sinus tachycardia is new. The minimal nonspecific T-wave ch anges are new. PREVIOUS TRACIN02/16/2016 20.26 DOCTOR: Kaitlynn Jain Interpretating Date/Time 10/20/2017 13:35:48
== END 2017-10-20 10:26 | disposition home or self-care (01) ==
LOC: PHED 14:36 → PHEDA 14:36 → INTOOBSV 17:52 → OBSVTOIN 17:52 → PHICU 19:30
PROVIDERS: ADMIT Hospitalist; ATTEND Hospitalist